=== PATIENT | male | born 1960 | race Caucasian/White ===

== ENCOUNTER 2017-09-28 13:52 | Emergency (ER) | payer OTHER ==
[~2017-09-28] VITALS: Ht 167.6 cm; Wt 90.7 kg
--- NOTE | 2017-09-28 13:52 | NUR ---
PT BIBA BLS TO BED 1
[2017-09-28 14:00] VITALS: BP 136/80
--- NOTE | 2017-09-28 14:04 | NUR ---
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 REPORTS THAT HE WAS WORKING WITH A HEAVY METAL/PLASTIC FOLDING CHAIR, AND HIS PINKY GOT CAUGHT. MINIMAL BLEEDING NOTED AT THIS TIME. THE SKIN/FLESH OF THE FINGER APPEARS TO BE SEPERATING FROM THE NAIL. CAP REFILL LESS THAN 3 SECONDS OF THE AFFECTED EXTREMITY, PULSES 2+. AAOX4. GCS 15, CMS INTACT, RR EVEN AND UNLABORED, LUNGS CLEAR. ER MD NOTIFIED. PT NEEDS MET, SAFETY PRECAUTIONS IN PLACE. WILL CONTINUE TO MONITOR.
[2017-09-28] MEDS ORDERED: LIDOCAINE 2% 1000 MG/50 ML VIAL INJ ONE (14:10)
[2017-09-28] MEDS ORDERED: HYDROcodone/APAP 5/325 MG 1 TAB TAB PO ONE (14:10)
--- NOTE | 2017-09-28 14:18 | NUR ---
XRAY AT BEDSIDE AT THIS TIME
[2017-09-28 15:50] VITALS: BP 127/77
--- NOTE | 2017-09-28 15:51 | NUR ---
Patient discharged with v/s stable. Written and verbal after care instructions given and explained. Patient alert, oriented and verbalized understanding of instructions. Ambulatory with steady gait. All questions addressed prior to discharge. ID band removed. Patient advised to follow up with PMD. Rx of Cameron and Keflex given. Patient educated on indication of medication including possible reaction and side effects. Opportunity to ask questions provided and answered.
== END 2017-09-28 15:51 | disposition home or self-care (01) ==
LOC: MED 13:52
DX: S68.126A Partial traumatic metacarpophalangeal amputation of right little finger, initial encounter (principal); W20.8XXA Other cause of strike by thrown, projected or falling object, initial encounter; Y93.89 Activity, other specified; Y92.89 Other specified places as the place of occurrence of the external cause; Y99.8 Other external cause status
CPT/HCPCS: 12001; 73140; 82948; 99284; J2001; Q0092